=== PATIENT | female | born 1985 | race Caucasian/White ===

== ENCOUNTER 2024-11-10 23:46 | Observation (INO) | payer OTHER, SELFPAY ==
[2024-11-10 19:43] LABS: % Basophils 0.2 % (0-2); % Eosinophils 0.1 % (0-6); % Immature Granulocytes 0.5 % (0-0.5); % Lymphocytes 8.5 % (20.5-51.1); % Monocytes 2.9 % (1.7-9.3); % Neutrophils 87.8 % (42.2-75.2); Absolute Immature Granulocytes 0.1 10^3/uL (0-0.05); Absolute Lymphocytes 1.7 10^3/uL (1.2-3.4); Absolute Monocytes 0.6 10^3/uL (0.1-0.6); Absolute Neutrophils 17.6 10^3/uL (1.4-6.5); Hemoglobin 13.3 g/dL (12.0-16.0); Mean Corpuscular Hgb 32.4 pg (27.0-31.0); Mean Corpuscular Volume 92.7 fL (81.0-99.0); Mean Platelet Volume 8.9 fL (7.4-10.4); Nucleated Red Blood Cells % 0 %; Platelet Count 436 10^3/uL (130-400)
[2024-11-10 20:01] LABS: ALT (SGPT) 16 U/L (0-35); AST (SGOT) 21 U/L (14-36); Albumin 4.7 g/dl (3.5-5.0); Alkaline Phosphatase 66 U/L (38-126); Blood Urea Nitrogen 11 mg/dl (7-17); Calcium 10.9 mg/dl (8.4-10.2); Carbon Dioxide 21 mmol/L (22-30); Chloride 103 mmol/L (98-107); Glucose 146 mg/dl (70-99); Lipase 231 U/L (23-300); Potassium 3.9 mmol/L (3.5-5.1); Sodium 135 mmol/L (135-145); Total Bilirubin 0.7 mg/dl (0.2-1.3); Total Protein 7.1 g/dl (6.3-8.2); eGFR > 60.00
[2024-11-10] MEDS: NSS 1000 IV ×2 (21:06→23:34)
[2024-11-10] MEDS: ZOFRAN 4 MG IV (21:06)
[2024-11-10] MEDS: ATIVAN 1 MG IV (21:07)
[2024-11-10 21:17] LABS: Urine Albumin 2+ (Neg - Trace); Urine Bilirubin Negative (Negative); Urine Character Clear (Clear); Urine Color Yellow; Urine Glucose Negative (Negative); Urine Ketone 3+ (Negative); Urine Leukocyte Negative (Negative); Urine Nitrite Negative (Negative); Urine Occult Blood 2+ (Negative); Urine Urobilinogen Negative (Neg - 1+)
[2024-11-10 21:25] LABS: Urine Amorphous Seen; Urine Squamous Cell 0-2 /LPF (Few)
[2024-11-10 21:26] LABS: Urine Bacteria Many (Negative); Urine White Cell 0-2 /HPF (0-5)
[2024-11-10 21:33] LABS: HCG, Serum Qualitative Screen Negative
--- NOTE | 2024-11-10 22:58 | ED.GENMED ---
History of Present Illness
General
Chief Complaint: Abdominal Symptoms
Time Seen by Provider: 11/10/24 20:44
Past History
Past History
ED Past Medical History: Psychiatric (Anxiety uses marijuana) and Other (Vomiting syndrome)
ED Past Surgical History: Other (oral surgery)
Social History
Tobacco: Non-smoker
Alcohol: Occasional
Drug: Marijuana (Occasional)
Personal:
Living: with family
Employment: Employed
Family History
Family History: Other (Noncontributory)
Course
Orders/Labs/Results
Orders:
Orders
11/10/24 19:30
EKG [Electrocardiogram (*1)] Urgent
Reason for Study: Vertigo / Dizzy
11/10/24 19:35
Complete Blood Count/With Diff Urgent
Comprehensive Metabolic Panel Urgent
HCG, Serum Qualitative Screen Urgent
Comment: ADD ON
Lipase Urgent
11/10/24 20:49
0.9% Sodium Chloride 1000 ml [Nss] 1,000 ml IV BOLUS
Ondansetron Injectable [Zofran] 4 mg IV NOW STA
11/10/24 20:50
Add On- LAB Urgent
Tests Added?: hcg qualitative
Lorazepam [Ativan] 1 mg IV NOW STA
11/10/24 20:51
CT Abd/Pel (IV only)-DH only Urgent
Comment:
Reason For Exam: Lower abdominal pain/vomiting/leukocytosis
11/10/24 21:09
Urinalysis Reflex To Culture Urgent
Date Specimen was Collected: 11/10/24
Time Specimen was Collected: 21:04
Urine Microscopic Reflex Cult Urgent
Urine Culture Urgent
FELISHA Source: U
Specimen Description:
Date Specimen was Collected: 11/10/24
Time Specimen was Collected: 21:04
Abnormal Lab Results
11/10/24 11/10/24
19:35 21:09
WBC 20.0 H 10^3/uL
(4.8-10.8)
RBC 4.10 L 10^6/uL
(4.20-5.40)
MCH 32.4 H pg
(27.0-31.0)
Plt Count 436 H 10^3/uL
(130-400)
Abs Immat Gran (auto) 0.1 H 10^3/uL
(0-0.05)
Absolute Neuts (auto) 17.6 H 10^3/uL
(1.4-6.5)
Neutrophils % 87.8 H %
(42.2-75.2)
Lymphocytes % 8.5 L %
(20.5-51.1)
Carbon Dioxide 21 L mmol/L
(22-30)
Glucose 146 H mg/dl
(70-99)
Calcium 10.9 H mg/dl
(8.4-10.2)
Urine Ketones 3+ A
(Negative)
Ur Occult Blood Reflex 2+ A
(Negative)
Urine RBC 3-6 A /HPF
(0-2)
Urine Bacteria (Reflex) Many A
(Negative)
Urine Albumin (Reflex) 2+ A
(Neg - Trace)
11/10/24 19:35
11/10/24 19:35
Vital Signs
Initial and Last Documented VS:
Initial Vital Signs
Temp Pulse Resp Pulse Ox
97.4 F 73 17 99
11/10/24 19:28 11/10/24 19:28 11/10/24 19:28 11/10/24 19:28
Last Documented Vital Signs
Temp Pulse Resp Pulse Ox
97.4 F 73 17 99
11/10/24 19:28 11/10/24 19:28 11/10/24 19:28 11/10/24 19:28
*Radiology
Radiology exam reviewed: radiology read reviewed (Possible pelvic congestion syndrome. Uterine fibroid. No other abnormalities.)
*Pulse Oximetry
Patient hypoxic: no
Update Note
Update Note:
Patient still with episodes of recurrent vomiting. Clinically nontoxic. How ever remains somewhat uncomfortable. No surgical findings by CT. Possibly cyclical vomiting syndrome with underlying viral illness. Urine has bacteria but negative
leukocyte negative nitrite. Will admit for further care. Copy of CT report given to patient
ED Attending Note
-
Portions of this chart may have been created with voice recognition software.� Occasional wrong word or��sound alike� substitutions may have occurred due to the inherent limitations of voice recognition software.
Discharge Plan
Departure
Patient Disposition: Admit
Date of Disposition: 11/10/24
Time of Disposition: 22:59
Presentation/result/management discussed w/ accepting MD/DO: Hospitalist
Discharge Problem:
Recurrent vomiting/fever, History of cyclical vomiting syndrome
Prescriptions:
No Action
omeprazole magnesium [Prilosec OTC] 20 MG tablet,delayed release (DR/EC)
20 mg PO DAILY Qty: 20 0RF
ondansetron 4 MG tablet,disintegrating
4 mg PO TIDPRN PRN (Reason: nausea/vomiting) Qty: 20 0RF
pantoprazole 40 MG tablet,delayed release (DR/EC)
40 mg PO DAILY Qty: 30 0RF
Referrals:
Maxine Fall PA-C [Family Provider] -
Interventions
Interventions:
*Risk Screen - Suicide Last Done: 11/10/24 19:29
*General Assessment Last Done: 11/10/24 19:29
*Neglect/Abuse Screening Last Done: 11/10/24 19:29
*ED COVID-19 Vaccine History Last Done: 11/10/24 19:29
WW-Vkmnbp-Lgjnagtdgk Assessment Last Done: 11/10/24 21:00
Discharge Date and Time
Print Language: DIVEHI
[2024-11-10 22:59] VITALS: BP 130/98
--- NOTE | 2024-11-10 23:13 | HPS.HSE ---
Family Physician
-
Family Physician: Maxine Fall PA-C
Chief Complaint
-
Vomiting, loose stool x 3
History of Present Illness
38-year-old female with recurrent episodes of vomiting and history of cyclical vomiting syndrome. She reports vomiting started at 5:30 PM. She also states this morning she had diarrhea but when asked describes as brown pudding-like. She reports
she has had 3 episodes of this type of stool today she denies any blood or mucus in it. She reports she has her current menses. She had CT abdomen pelvis in the ER with no surgical pathology. She denies headache, sore throat, fever, chills, chest
pain, palpitations, urinary symptoms, rash, sick contacts. She states she has been evaluated by gastroenterology for cyclical vomiting they felt could be likely related to her marijuana use. She reports she has a medical marijuana card uses a
gummy in the morning and smokes marijuana every night before bedtime. She has vomiting that has been starting to occur every 6 months. Other past medical history includes GERD, anxiety.
Medical History
Past Medical History
Past Medical History: Reports Other
Additional Past Medical History:
GERD
Anxiety
Medical marijuana gummy use and smoking
Nicotine abuse
Past Surgical History: Reports None
Social History
Tobacco: Smoker (1/2 pack/day)
Alcohol: None
Drug: Marijuana (1 gummy in a.m., smokes marijuana p.m.)
Personal:
Living: With Family
Family History
Family History: Not pertinent
Allergies / Home Medications
Allergies reflects when Allergies were last updated in [facility].
Home Medications with original date entered in [facility]
Allergy/Medication List:
Allergies
Allergy/AdvReac Type Severity Reaction Status Date / Time
Penicillins Allergy does not Verified 11/10/24 19:28
remember ?
rash
Pertussis Vaccines Allergy stopped Verified 11/10/24 19:28
breathing
Home Medications
Marijuana 1 puff inhalation DIRECTED 11/10/24
Marijuana Gummy 1 gummy PO DAILY 11/10/24
Probiotic 1 cap PO DAILY 11/10/24
escitalopram oxalate 20 mg tablet (Lexapro) 20 mg PO DAILY 11/10/24
lorazepam 0.5 mg tablet (Ativan) 0.5 mg PO DAILY PRN anxiety 11/10/24
Review of Systems
-
History Source: Patient and Family ()
A 12 point ROS was completed and negative except as noted: Yes
Constitutional: Denies Fever or Chills
EENT: Denies Sore Throat or Runny Nose
Respiratory: Denies Cough or Trouble Breathing
Cardiac: Denies Chest Pain, Diaphoresis, Palpitations or Syncope
Abdomen/GI: Reports Abdominal Pain, Nausea, Vomiting and Diarrhea (3 episodes of loose brown); Denies Constipated, Bloody Stools or Black Stools
: Denies Dysuria, Frequency, Flank Pain, Incontinence or Difficulty Voiding
Musculoskeletal: Denies Joint Pain or Edema
Skin: Denies Itching or Rash
Neurological: Denies Dizzy, Headache or Weakness
Endocrine: Denies Polyuria
Hematologic/Lymphatic: Denies Bleeding
Psych: Reports Calm
Physical Exam
Vital Signs
Vital Signs
Temp Pulse Resp BP Pulse Ox
97.4 F 50 16 130/98 99
11/10/24 19:28 11/10/24 22:59 11/10/24 22:59 11/10/24 22:59 11/10/24 22:59
Physical Exam
General: Conversant and Other (Actively vomiting and dry heaving during my exam); No Pain, Fever or Chills
HEENT: NormoCephalic, Anicteric and PERRLA
Respiratory: Clear; No Wheezes, Rales or Rhonchi
Cardiac: S1/S2 and Tachycardia (Sinus); No Murmur, Rub, Gallop or Peripheral Edema
GI: Soft, Non Distended, Normal Bowel Sounds, Tender (Generalized) and No Hepatosplenomegaly
Rectal: Deferred by Provider
Genito-urinary: Deferred by me
Musculoskeletal: No Clubbing and No Edema
Skin: Warm and Dry; No Rash or Jaundice
Neuro: AO x 3, No Motor Deficits, Nonfocal/grossly intact, Cranial Nerves Intact and No Sensory Deficits; No Slurred Speech, Facial Droop, Tremors or Sedated
Psych: Anxious
Laboratory Results
-
11/10/24 19:35
11/10/24 19:35
Laboratory Results
Total Bilirubin 0.7 mg/dl (0.2-1.3) 11/10/24 19:35
AST 21 U/L (14-36) 11/10/24 19:35
ALT 16 U/L (0-35) 11/10/24 19:35
Alkaline Phosphatase 66 U/L (38-126) 11/10/24 19:35
Lipase 231 U/L (23-300) 11/10/24 19:35
Data Reviewed
-
CT Scan: Report Reviewed by me
Lab Data: Labs Reviewed by me
Impression/Plan
-
Impression/plan:
Observation MedSurg
#Intractable vomiting possible recurrent cyclical vomiting syndrome 2/2 marijuana use
#History of marijuana use
-Advised cessation of marijuana due to cyclical vomiting
-IV NSS 1 L given in ER, continue IV NSS 100 cc/h
-IV Zofran
-IV Reglan 10 mg now then 10 mg every 6 hours scheduled x 6 doses
-IV Protonix 40 mg daily
-Check UDS
-Follow CBC, CMP
CT abdomen pelvis with IV contrast only:
1.) The colon is not distended, which limits evaluation for colonic wall thickening. No gross evidence for small or large bowel wall thickening, given the limitation of a lack of GI luminal contrast agent.
2.) The appendix appears normal. No evidence for bowel obstruction or free intraperitoneal air.
3.) 2.3 cm fibroid extending exophytically off the right inferior margin of the uterus.
4.) Prominent periuterine veins left greater than right, within enlarged left ovarian vein. Please correlate with any symptoms that would suggest pelvic congestion syndrome.
#Acute leukocytosis reported loose stool unclear etiology possibly secondary to intractable vomiting
WBC 20 with left shift, afebrile 97.4, HR 50, 130/51-[id number]
-Urinalysis negative, CT abdomen pelvis negative, hCG negative
-Check COVID and influenza swab
-If patient with loose stool we will check for norovirus, stool WBC, stool culture
No recent antibiotics
#GERD
-Will give IV Protonix 40 mg daily
DVT prophylaxis
-Subcu Lovenox
Full code
--- NOTE | 2024-11-10 23:31 | W.PN.UPDATE ---
Update Note
Progress Note Update
Patient seen in conjunction with RUTH. I agree the findings on history and physical. I concur with assessment and plan listed otherwise.
Briefly, this is a 38-year-old female with past medical history significant for cyclic vomiting who presents to the emergency department with acute episode of vomiting. Patient report being in usual state of health up until this afternoon when she
had nauseous episode and then vomited. She has been having nausea and dry heaves since then. She is unable to tolerate any p.o. Denies any recent fevers chills. She denies any abdominal pain until she started this dry heaves. She denies any
flank pain. He denies recent hematuria or frequency. She has been urinating since onset of the vomiting. She denies headache. She denies any neck pain. She has no vision changes. She is currently on her period.
Patient reported that in the past she is presented to the emergency department with cyclic vomiting and has been treated with IV fluids and Zofran. However this time despite IV fluids and Zofran she has continued to be having intractable vomiting.
She has a white count of 30, hemoglobin and platelets were normal. Electrolytes BUN/creatinine, currently normal. LFTs were normal. Lipase was normal. UA shows bacteria but no evidence of infection with nitrites negative, leukocyte esterase
negative, no pyuria. ECG initially had sinus bradycardia at a rate of 49.
CT of the abdomen pelvis shows no acute intra-abdominal process.
Assessment and plan
Intractable vomiting likely secondary to cyclic vomiting. Labs notable for leukocytosis to [address] of the abdomen shows no acute intra-abdominal process. test is negative. UA is not consistent with acute
infection. There are no stones.
-admit to medsurg
- npo, IV NS for now
- reglan RTC
- prn zofran for vomiting
- prn ativan for agitation
- pain control as needed.
- checking viral panel given leukocytosis but no signs of acute infection
- consider addition of capsaicin
- no bowel obstruction and no h/o opioids nor h/o gastroparesis
DVT PPX - lovenox sq
Code status -full code
[2024-11-10] MEDS: REGLAN 10 MG IV (23:34)
[2024-11-10] MEDS: PROTONIX IV 40 MG IV (23:38)
[2024-11-10] MEDS: NSS (PRESERVATIVE FREE) 10 ML IV (23:38)
[2024-11-10 23:57] LABS: Amphetamines Negative (Negative); Barbiturates Negative (Negative); Benzodiazepines Negative (Negative); Buprenorphine Negative (Negative); Cocaine Negative (Negative); Marijuana Positive (Negative); Methadone Negative (Negative); Methamphetamines Negative (Negative); Opiates Negative (Negative); Phencyclidine Negative (Negative); Tricyclic Antidepressants Negative (Negative)
[2024-11-11 00:02] LABS: Procalcitonin < 0.05 ng/ml (0.0-0.25)
[2024-11-11 00:03] LABS: COVID-19 Antigen Negative (Negative)
[2024-11-11 00:18] VITALS: BP 129/84; BMI 24.2
[2024-11-11] MEDS: REGLAN IV (00:20)
[2024-11-11] MEDS: ATIVAN 1 MG IV ×3 (00:51→20:21)
[2024-11-11] MEDS: NSS (PRESERVATIVE FREE) 0.5 ML IV (00:51)
--- NOTE | 2024-11-11 04:31 | DOWNTIME ---
There was a [employer] Client [employer] Operator Downtime on 11/11/2024 from 0100 to 11/12/2023 at 0420 . Downtime documentation of patient's care, including medication administrations, has been reconciled in the electronic record per guidelines. Refer to the
patient's paper chart under the miscellaneous tab to see printed paper medication records and downtime forms.
--- NOTE | 2024-11-11 04:42 | PTCARENOTE ---
Pt. rec'd from ED AAOx3 but anxious, VSS, ambulatory with steady gait. Complaining of nausea and intermittently retching loudly, vomited small amount of green bile. Bowel sounds hyperactive, no BM's. Admission questions completed and plan of
care reviewed with patient, understanding verbalized. Ativan given for anxiety, after which pt. fell asleep for approx. 4 hours (no vomiting or retching). Currently awake and nauseous again, will medicate.
[2024-11-11] MEDS: REGLAN 10 MG IV ×3 (05:01→17:11)
[2024-11-11 07:43] VITALS: BP 102/70
[2024-11-11] MEDS: PROTONIX IV 40 MG IV (08:05)
[2024-11-11] MEDS: NSS (PRESERVATIVE FREE) 10 ML IV (08:05)
[2024-11-11 08:28] LABS: % Basophils 0.2 % (0-2); % Eosinophils 0.1 % (0-6); % Immature Granulocytes 0.3 % (0-0.5); % Lymphocytes 6.4 % (20.5-51.1); % Monocytes 3.2 % (1.7-9.3); % Neutrophils 89.8 % (42.2-75.2); Absolute Lymphocytes 0.8 10^3/uL (1.2-3.4); Absolute Monocytes 0.4 10^3/uL (0.1-0.6); Absolute Neutrophils 11.3 10^3/uL (1.4-6.5); Hematocrit 37.7 % (37.0-47.0); Hemoglobin 12.6 g/dL (12.0-16.0); Mean Corp Hgb Conc. 33.4 g/dL (33.0-37.0); Mean Corpuscular Hgb 32.1 pg (27.0-31.0); Mean Corpuscular Volume 96.2 fL (81.0-99.0); Mean Platelet Volume 9.3 fL (7.4-10.4); Nucleated Red Blood Cells % 0 %; Platelet Count 389 10^3/uL (130-400); Red Blood Cell Count 3.92 10^6/uL (4.20-5.40); Red Cell Dist. Width 12.2 % (11.5-14.5); White Blood Cell Count 12.6 10^3/uL (4.8-10.8)
[2024-11-11 08:58] LABS: ALT (SGPT) 18 U/L (0-35); AST (SGOT) 20 U/L (14-36); Albumin 4.7 g/dl (3.5-5.0); Alkaline Phosphatase 59 U/L (38-126); Blood Urea Nitrogen 13 mg/dl (7-17); Calcium 9.9 mg/dl (8.4-10.2); Carbon Dioxide 22 mmol/L (22-30); Chloride 102 mmol/L (98-107); Estimated Creatinine Clearance 102 ml/min; Glucose 108 mg/dl (70-99); Potassium 4.4 mmol/L (3.5-5.1); Sodium 137 mmol/L (135-145); Total Bilirubin 0.9 mg/dl (0.2-1.3); Total Protein 6.6 g/dl (6.3-8.2); eGFR > 60.00
[2024-11-11] MEDS: NSS 1000 IV ×2 (09:05→23:10)
[2024-11-11] MEDS: ZOFRAN 4 MG IV (09:06)
--- NOTE | 2024-11-11 10:01 | W.PN.HOSP.TC ---
Today's Communication/Plan
-
see plan
Assessment / Plan
Assessment / Plan
CT abdomen pelvis with IV contrast only:
1.) The colon is not distended, which limits evaluation for colonic wall thickening. No gross evidence for small or large bowel wall thickening, given the limitation of a lack of GI luminal contrast agent.
2.) The appendix appears normal. No evidence for bowel obstruction or free intraperitoneal air.
3.) 2.3 cm fibroid extending exophytically off the right inferior margin of the uterus.
4.) Prominent periuterine veins left greater than right, within enlarged left ovarian vein. Please correlate with any symptoms that would suggest pelvic congestion syndrome.
#Intractable vomiting possible recurrent cyclical vomiting syndrome 2/2 marijuana use
#History of marijuana use
-Advised cessation of marijuana due to cyclical vomiting
-IV NSS 1 L given in ER, continue IV NSS 100 cc/h
-IV Zofran
-IV Reglan 10 mg now then 10 mg every 6 hours scheduled x 6 doses
-trial of capsaicin cream
-clear liquids
-IV Protonix 40 mg daily
#Acute leukocytosis possible stress reaction
WBC 20 with left shift, afebrile 97.4, HR 50, 130/94-[id number]
-Urinalysis negative, CT abdomen pelvis negative, hCG negative
-improving this morning
#GERD
-Will give IV Protonix 40 mg daily
DVT prophylaxis
-Subcu Lovenox
Full code
Anticipated Discharge: 24 - 48 hours
Subjective/Interval History
-
Date of Service: November 11, 2024
feeling a little better this morning
awoken from sleep
Objective Data
-
Labs:
Laboratory Results
11/11/24
07:51
WBC 12.6 H
Hgb 12.6
Hct 37.7
Plt Count 389
Sodium 137
Potassium 4.4
Chloride 102
Carbon Dioxide 22
BUN 13
Creatinine 0.7
Glucose 108 H
Calcium 9.9
Total Bilirubin 0.9
AST 20
ALT 18
Alkaline Phosphatase 59
Vital Signs:
Vital Signs
Temp Pulse Resp BP Pulse Ox
98.2 F 81 18 102/70 98
11/11/24 07:43 11/11/24 07:43 11/11/24 07:43 11/11/24 07:43 11/11/24 07:43
I&O
11/10/24 11/11/24 11/12/24
06:59 06:59 06:59
Intake Total 700 / 700
Output Total 100 / 100
Balance 600 / 600
Review of Systems
-
History Source: Patient
All other systems: Reviewed and negative
Physical Exam
-
General: No Apparent Distress
HEENT: PERRLA
Respiratory: Clear to Auscultation; Negative Wheezes
Cardiac: Regular Rhythm and S1/S2
GI: Soft and Nontender
Musculoskeletal: No Edema
Skin: Warm and Dry; Negative Rash
Neuro: AO x 3
Psych: Calm
Data Reviewed
-
Diagnostic Radiology: Report Reviewed by me
Labs: Labs Reviewed by me
[2024-11-11] MEDS: ZOSTRIX-HP 0.075% CREAM 1 APPLIC TOPICAL (13:03)
--- NOTE | 2024-11-11 13:33 | CM ---
Reviewed the chart notes and spoke with the patient and her spouse at the bedside. The patient is admitted under observational status. The observational letter was provided and explained. The patient had no questions with regards to the letter.
The patient resides with her spouse and daughter in a two story home with one step to enter. The patient reports no DME/VN/SNF in the past. The patient confirmed her pharmacy of choice is the [facility]. continues to be
available to patient/family and is monitoring medical plan for needs at discharge.
Plan: Discharge to home when medically stable. No needs identified at this time.
[2024-11-11 15:31] VITALS: BP 106/69
[2024-11-11] MEDS: LOVENOX 40 MG SC (17:11)
--- NOTE | 2024-11-11 18:21 | PTCARENOTE ---
Pt tolerating CLD, no vomiting episodes during shift. Awaiting stool sample, continues on Enhanced precautions. Communicated plan with pt and at bedside, Continue IVF, Protonix, Reglan, and monitor on CLD. Pt satisfied with plan.
left to get supplies from home for pt. Call [facility]arton within reach.
[2024-11-11 23:24] VITALS: BP 124/66
[2024-11-12] MEDS: REGLAN 10 MG IV ×2 (00:58→06:23)
[2024-11-12 07:07] VITALS: BP 111/75
[2024-11-12] MEDS: PROTONIX IV 40 MG IV (08:33)
[2024-11-12] MEDS: NSS (PRESERVATIVE FREE) 10 ML IV (08:33)
[2024-11-12] MEDS: NSS 1000 IV (08:34)
[2024-11-12 08:38] LABS: Blood Urea Nitrogen 11 mg/dl (7-17); Calcium 9.3 mg/dl (8.4-10.2); Carbon Dioxide 24 mmol/L (22-30); Chloride 106 mmol/L (98-107); Estimated Creatinine Clearance 102 ml/min; Glucose 96 mg/dl (70-99); Magnesium 1.8 mg/dl (1.6-2.3); Potassium 4.4 mmol/L (3.5-5.1); Sodium 136 mmol/L (135-145); eGFR > 60.00
[2024-11-12] MEDS: ATIVAN 1 MG IV (09:02)
[2024-11-12] MEDS: NSS (PRESERVATIVE FREE) 0.5 ML IV (09:02)
--- NOTE | 2024-11-12 09:28 | W.PN.HOSP.TC ---
Today's Communication/Plan
-
expect DC today if tolerates regular diet
Assessment / Plan
Assessment / Plan
CT abdomen pelvis with IV contrast only:
1.) The colon is not distended, which limits evaluation for colonic wall thickening. No gross evidence for small or large bowel wall thickening, given the limitation of a lack of GI luminal contrast agent.
2.) The appendix appears normal. No evidence for bowel obstruction or free intraperitoneal air.
3.) 2.3 cm fibroid extending exophytically off the right inferior margin of the uterus.
4.) Prominent periuterine veins left greater than right, within enlarged left ovarian vein. Please correlate with any symptoms that would suggest pelvic congestion syndrome.
#Intractable vomiting possible recurrent cyclical vomiting syndrome 2/2 marijuana use
#History of marijuana use
-Advised cessation of marijuana due to cyclical vomiting
-tolerating clears, symptoms improved this AM
-advance diet, if tolerates OK for DC
-refill zofran for arlyn
#Acute leukocytosis possible stress reaction
WBC 20, improved to 12 without antibiotics
-can repeat labs as outpatient
#GERD
-Will give IV Protonix 40 mg daily
DVT prophylaxis
-Subcu Lovenox
Full code
Anticipated Discharge: Today
Subjective/Interval History
-
Date of Service: November 12, 2024
feeling well
wants to try regular diet
Objective Data
-
Labs:
Laboratory Results
11/12/24
07:24
Sodium 136
Potassium 4.4
Chloride 106
Carbon Dioxide 24
BUN 11
Creatinine 0.7
Glucose 96
Calcium 9.3
Vital Signs:
Vital Signs
Temp Pulse Resp BP Pulse Ox
98.3 F 60 16 111/75 96
11/12/24 07:07 11/12/24 07:07 11/12/24 07:07 11/12/24 07:07 11/12/24 07:07
I&O
11/11/24 11/12/24 11/13/24
06:59 06:59 06:59
Intake Total 700 / 700 2880 / 2880
Output Total 100 / 100
Balance 600 / 600 2880 / 2880
Review of Systems
-
History Source: Patient
All other systems: Reviewed and negative
Physical Exam
-
General: No Apparent Distress
HEENT: PERRLA
Respiratory: Clear to Auscultation; Negative Wheezes
Cardiac: Regular Rhythm and S1/S2
GI: Soft and Nontender
Musculoskeletal: No Edema
Skin: Warm and Dry; Negative Rash
Neuro: AO x 3
Psych: Calm
Data Reviewed
-
Diagnostic Radiology: Report Reviewed by me
Labs: Labs Reviewed by me
--- NOTE | 2024-11-12 09:32 | W.DS.TRANS ---
DC Summary - Fmd Teacher
-
Discharge Instructions:
Discharge Diagnosis/Procedures cyclic vomiting syndrome
Diet Regular
Activity As tolerated
Driving Restrictions As prior to admission
Instructions:
Stand-Alone Forms:
Changes to Home Medications: Yes
Discharge Medications:
DC Medications w/original date entered in [facility]
Probiotic 1 cap PO DAILY Gastrointestinal Issue 11/10/24
escitalopram oxalate 20 mg tablet (Lexapro) 20 mg PO DAILY Mental Health/Anxiety 11/10/24
lorazepam 0.5 mg tablet (Ativan) 0.5 mg PO DAILY PRN anxiety 11/10/24
ondansetron 4 mg disintegrating tablet 4 mg PO Q8H PRN nausea and vomiting #15 tabs 11/12/24
Home Medication Changes
stop marijuana, addition of zofran PRN
Pending Results: No
--- NOTE | 2024-11-12 10:11 | CM ---
Reviewed the chart notes. Patient for discharge to home today. Spouse will provide transportation.
--- NOTE | 2024-11-12 10:50 | PTCARENOTE ---
Patient with small brown soft BM in hat, sample sent to lab for testing per orders. Patient with no N/V or abd pain. Patient for DC pending tolerating low residue diet. This RN communicated with , stated stool sample can be cancelled at this
time. This RN communicated with lab.
[2024-11-12] MEDS: REGLAN IV (11:41)
--- NOTE | 2024-11-12 12:45 | W.DCSUMMARY ---
Discharge Summary
Discharge Data
Date of Admission: 11/10/24
Date of Discharge: 11/12/24
-
Pending Results: No
Hospital Course
Discharging Physician : Dr. Amairani Hardin
Disposition : Home
Primary care physician : Dr. Maxine Fall
Principal Discharge diagnosis : Cyclic Vomiting Syndrome
Hospital Course :
Ms. Marva Camp is a 38-year-old female with past medical history significant for cyclic vomiting who presents to the emergency department with acute episode of vomiting.
She had a white count of 20, hemoglobin and platelets were normal. Electrolytes BUN/creatinine, currently normal. LFTs were normal. Lipase was normal. UA shows bacteria but no evidence of infection with nitrites negative, leukocyte esterase
negative, no pyuria. ECG initially had sinus bradycardia at a rate of 49.
CT of the abdomen pelvis shows no acute intra-abdominal process.
She was admitted to medicine. She was given IVF, standing IV Reglan with IV Zofran PRN. Capsaicin cream trialed but resulted in a rash. Over the next 48 hours symptoms much improved and she tolerated a regular diet prior to DC. Her leukocytosis
improved from 20 to 12 on HD 1 (no abx given). Can obtain repeat CBC as outpatient to confirm normalization of WBC.
She has outpatient follow up on 11/24/24.
Patient plans to stop marijuana intake.
Time spent on discharge was 31 minutes.
Important imaging findings :
CT abdomen pelvis with IV contrast only:
1.) The colon is not distended, which limits evaluation for colonic wall thickening. No gross evidence for small or large bowel wall thickening, given the limitation of a lack of GI luminal contrast agent.
2.) The appendix appears normal. No evidence for bowel obstruction or free intraperitoneal air.
3.) 2.3 cm fibroid extending exophytically off the right inferior margin of the uterus.
4.) Prominent periuterine veins left greater than right, within enlarged left ovarian vein. Please correlate with any symptoms that would suggest pelvic congestion syndrome.
Procedure findings :
Discharge Plan
-
Patient Disposition: Home (Routine Discharge)
Discharge Diagnosis/Procedures: cyclic vomiting syndrome
Diet: Regular
Activity: As tolerated
Driving Restrictions: As prior to admission
Referrals:
Maxine Fall PA-C [Family Provider] - 11/24/24
Prescriptions:
New
ondansetron 4 mg tablet,disintegrating
4 mg PO Q8H PRN (Reason: nausea and vomiting) Qty: 15 0RF
Continued
lorazepam [Ativan] 0.5 mg Tablet
0.5 mg PO DAILY PRN (Reason: anxiety)
escitalopram oxalate [Lexapro] 20 mg Tablet
20 mg PO DAILY
Probiotic
1 cap PO DAILY
Discontinued
Marijuana
1 puff inhalation DIRECTED
Rx Instructions:
Patient smokes multiple puffs at bedtime
Marijuana Gummy
1 gummy PO DAILY
Discharge Orders:
Discharge Patient (As Directed); Ordered 11/12/24
Ordered By: mAairani Hardin
Discharge Date and Time
Print Language: LATVIAN
[2024-11-12 13:44] VITALS: BP 118/70
--- NOTE | 2024-11-12 14:04 | PTCARENOTE ---
Patient discharged home with no needs. This RN removed patient's IV, discharge vitals taken by tech stable. Patient dressed and gathered belongings independently in room. Patient driving self home, given printout of labs prior to discharge, refused
staff escort and wheelchair and ambulated down to car with spouse.
== END 2024-11-12 14:08 | disposition home or self-care (01) ==
LOC: 2 NORTH 23:46
PROVIDERS: Clinical Nurse Specialist Family Health; Emergency Medicine; ADMITTING PHYSICIAN Internal Medicine; ATTENDING PHYSICIAN Student in an Organized Health Care Education/Training Program; EMERGENCY PHYSICIAN Emergency Medicine; FAMILY PHYSICIAN Physician Assistant
DX: R11.15 Cyclical vomiting syndrome unrelated to migraine (principal); R42 Dizziness and giddiness; R10.30 Lower abdominal pain, unspecified; R19.7 Diarrhea, unspecified; F17.210 Nicotine dependence, cigarettes, uncomplicated; Z79.899 Other long term (current) drug therapy; F12.90 Cannabis use, unspecified, uncomplicated; D25.9 Leiomyoma of uterus, unspecified; D72.829 Elevated white blood cell count, unspecified; K21.9 Gastro-esophageal reflux disease without esophagitis; R00.1 Bradycardia, unspecified
CPT/HCPCS: 74177; 80048; 80053; 80306; 81003; 81015; 83690; 83735; 84145; 84703; 85025; 87086; 87502; 87811; 93005; 96361; 96374; 96375; 99285; 99406; G0378; Q9967

== ENCOUNTER → 2025-01-15 07:37 | Outpatient (REF) | payer OTHER, SELFPAY | LOC: RAD 07:37 | PROVIDERS: ATTENDING PHYSICIAN Physician Assistant; FAMILY PHYSICIAN Physician Assistant | DX: R11.2 Nausea with vomiting, unspecified (principal) | CPT/HCPCS: 78264; A9541 ==

== ENCOUNTER → 2025-03-10 08:09 | Outpatient (REF) | payer OTHER, SELFPAY | LOC: HWRAD 08:09 | PROVIDERS: ATTENDING PHYSICIAN Nurse Practitioner Family; FAMILY PHYSICIAN Physician Assistant | DX: R10.2 Pelvic and perineal pain (principal) | CPT/HCPCS: 76830; 76856 ==